=== PATIENT | male | born 1980 | race Two or more races ===

== ENCOUNTER 2017-03-09 21:27 | Observation (INO) | payer OTHER ==
--- NOTE | 2017-03-09 21:41 | EDPHY ---
H & P Stated Complaint: ABD PAIN TODAY, VOMIT LITTLE Time Seen by Provider: 03/09/17 21:35 HPI/ROS: CHIEF COMPLAINT: Abdominal pain HISTORY OF PRESENT ILLNESS: 36-year-old male primarily [place]-speaking via private vehicle complaining of right lower quadrant abdominal pain since yesterday. No appetite. Last oral intake was this morning. Positive nausea. No vomiting. Bowel movements normal. This no fever no chills. No trauma. No testicular pain. No history of chronic abdominal pain history of abdominal surgeries. PRIMARY CARE PROVIDER:[facility] REVIEW OF SYSTEMS: A ten point review of systems was performed and is negative with the exception of the items mentioned in the HPI PAST MEDICAL & SURGICAL HISTORY: No history of abdominal surgeries SOCIAL HISTORY:nonsmoker. No daily alcohol use. PHYSICAL EXAM (Prior to examination, patient consented to physical exam, hands were washed and my usual and customary physical exam procedures followed) 1) GENERAL: Well-developed, well-nourished, alert and oriented. Appears to be in no acute distress. 2) HEAD: Normocephalic, atraumatic 3) HEENT: Pupils equal, round, reactive to light bilaterally. Sclera anicteric. 4) NECK: Full range of motion, no meningeal signs. 5) LUNGS: Clear auscultation bilaterally, no wheezes, no rhonchi, no retractions. 6) HEART: Regular rate and rhythm, no murmur, no heave, no gallop. 7) ABDOMEN: No guarding, positive McBurney's point pain, negative Pretty's, negative Rovsing's, negative peritoneal sign, 8) MUSCULOSKELETAL: Moving all extremities, no focal areas of tenderness, no obvious trauma. No peripheral edema or discoloration. 9) BACK: No CVA tenderness, no midline vertebral tenderness, no fluctuance, no step-off, no obvious trauma, no visual or palpable abnormality. 10) SKIN: No rash, no petechiae. 11) : Normal male external genitalia, bilateral cremasteric reflex present and brisk , no testicular pain, swelling DIFFERENTIAL DIAGNOSIS: My differential diagnosis includes, but is not limited to, acute appendicitis, acute cholecystitis, bowel obstruction, acute pancreatitis, testicular torsion, gastritis and urinary tract infection. The patient understands that this diagnosis is provisional and can never be 100% accurate. This is a partial list of diagnoses considered. These considerations are based on history, physical exam, past history and reassessment. - Personal History Current Tetanus/Diphtheria Vaccine: Yes - Medical/Surgical History Hx Asthma: No Hx Chronic Respiratory Disease: No Hx Diabetes: No Hx Cardiac Disease: No Hx Renal Disease: No Hx Cirrhosis: No Hx Alcoholism: No Hx HIV/AIDS: No Hx Splenectomy or Spleen Trauma: No Other PMH: DENIES - Social History Smoking Status: Never smoked Constitutional: Initial Vital Signs Temperature (C) 37.2 C 03/09/17 21:31 Heart Rate 77 03/09/17 21:31 Respiratory Rate 18 03/09/17 21:31 Blood Pressure 125/69 H 03/09/17 21:31 O2 Sat (%) 96 03/09/17 21:31 O2 Delivery Mode Room Air Allergies/Adverse Reactions: No Known Allergies Allergy (Unverified 03/09/17 21:30) Home Medications: Medication Instructions Recorded Metronidazole 03/09/17 Medical Decision Making - Diagnostics Imaging Results: Imaging Impressions Abdomen CT 03/09/17 22:01 Impression: Acute appendicitis. Results called and discussed with Tio Avila, at 03/09/2017 22:40 General information for patients regarding this examination can be found at [email or web address]. If you have questions or comments about this report, please contact me at (hospital) or [phone] (cell). Imaging: Discussed imaging studies w/ call center coordinator Radiologist ED Course/Re-evaluation: 9:40 p.m.: Patient has localized right lower quadrant abdominal pain. Will obtain diagnostic studies. Patient remains NPO since breakfast this morning. 1045 pm: I discussed the imaging results to the patient significant for acute appendicitis. Will consult with General surgery, start patient on Invanz. Patient also seen exam by Dr. Aguayo in the ER. Patient remains NPO since 11: 00 a.m. today. 1100 pm: Consultation with Dr Ernandez - Data Points Laboratory Results: Laboratory Results 03/09/17 21:45 03/09/17 21:45 03/09/17 03/09/17 03/09/17 21:45 21:45 21:43 WBC 13.49 10^3/uL H 10^3/uL (3.80-9.50) RBC 5.27 10^6/uL 10^6/uL (4.40-6.38) Hgb 16.6 g/dL g/dL (13.7-17.5) POC Hgb 17.3 gm/dL gm/dL (13.7-17.5) Hct 47.7 % % (40.0-51.0) POC Hct 51 % % (40-51) MCV 90.5 fL fL (81.5-99.8) MCH 31.5 pg pg (27.9-34.1) MCHC 34.8 g/dL g/dL (32.4-36.7) RDW 12.0 % % (11.5-15.2) Plt Count 225 10^3/uL 10^3/uL (150-400) MPV 10.4 fL fL (8.7-11.7) Neut % (Auto) 83.5 % H % (39.3-74.2) Lymph % (Auto) 7.9 % L % (15.0-45.0) [place] % (Auto) 8.1 % % (4.5-13.0) Eos % (Auto) 0.1 % L % (0.6-7.6) Baso % (Auto) 0.2 % L % (0.3-1.7) Nucleat RBC Rel Count 0.0 % % (0.0-0.2) Absolute Neuts (auto) 11.26 10^3/uL H 10^3/uL (1.70-6.50) Absolute Lymphs (auto) 1.07 10^3/uL 10^3/uL (1.00-3.00) Absolute Monos (auto) 1.09 10^3/uL H 10^3/uL (0.30-0.80) Absolute Eos (auto) 0.01 10^3/uL L 10^3/uL (0.03-0.40) Absolute Basos (auto) 0.03 10^3/uL 10^3/uL (0.02-0.10) Absolute Nucleated RBC 0.00 10^3/uL 10^3/uL (0-0.01) Immature Gran % 0.2 % % (0.0-1.1) Immature Gran # 0.03 10^3/uL 10^3/uL (0.00-0.10) POC Sodium 142 mEq/L mEq/L (134-144) Sodium 140 mEq/L mEq/L (134-144) POC Potassium 3.3 mEq/L mEq/L (3.3-5.0) Potassium 3.5 mEq/L mEq/L (3.5-5.2) POC Chloride 101 mEq/L mEq/L (97-110) Chloride 102 mEq/L mEq/L (97-110) Carbon Dioxide 23 mEq/l mEq/l (22-31) Anion Gap 15 mEq/L mEq/L (8-16) POC BUN 6 mg/dL L mg/dL (7-23) BUN 8 mg/dL mg/dL (7-23) Creatinine 0.9 mg/dL mg/dL (0.7-1.3) POC Creatinine 0.9 mg/dL mg/dL (0.7-1.3) Estimated GFR > 60 Glucose 146 mg/dL H mg/dL (70-100) POC Glucose 151 mg/dL H mg/dL (70-100) Calcium 8.9 mg/dL mg/dL (8.5-10.4) Total Bilirubin 0.9 mg/dL mg/dL (0.1-1.4) Conjugated Bilirubin 0.2 mg/dL mg/dL (0.0-0.5) Unconjugated Bilirubin 0.7 mg/dL mg/dL (0.0-1.1) AST 24 IU/L IU/L (17-59) ALT 38 IU/L IU/L (21-72) Alkaline Phosphatase 89 IU/L IU/L (38-126) Total Protein 7.2 g/dL g/dL (6.3-8.2) Albumin 4.1 g/dL g/dL (3.5-5.0) Lipase 88 IU/L IU/L (23-300) Medications Given: Discontinued Medications Ketorolac Tromethamine (Toradol) 30 mg IVP EDNOW ONE Stop: 03/09/17 22:04 Last Admin: 03/09/17 22:14 Dose: 30 mg Point of Care Test Results: 03/09/17 21:43 POC Sodium 142 POC Potassium 3.3 POC Chloride 101 POC BUN 6 L POC Creatinine 0.9 POC Glucose 151 H Departure - Departure Disposition: [facility] Inpatient Acute Clinical Impression: Acute appendicitis Qualifiers: Acute appendicitis type: with localized peritonitis Qualified Code(s): K35.3 - Acute appendicitis with localized peritonitis Condition: Fair
[2017-03-09 21:53] LABS: % IMMATURE GRANULYOCYTES 0.2 % (0.0-1.1); ABSOLUTE IMMATURE GRANULOCYTES 0.03 10^3/uL (0.00-0.10); ADD DIFF? NO; ADD MORPH? NO; ADD SCAN? NO; ATYPICAL LYMPHOCYTE FLAG 30 (0-99); FRAGMENT RBC FLAG 0 (0-99); HEMATOCRIT 47.7 % (40.0-51.0); HEMOGLOBIN 16.6 g/dL (13.7-17.5); LEFT SHIFT FLG 10 (0-99); LIPEMIA HEMOLYSIS FLAG 90 (0-99); MEAN CELL HEMOGLOBIN 31.5 pg (27.9-34.1); MEAN CELL HEMOGLOBIN CONCENTR. 34.8 g/dL (32.4-36.7); MEAN CELL VOLUME 90.5 fL (81.5-99.8); MEAN PLATELET VOLUME 10.4 fL (8.7-11.7); PLATELET CLUMPS FLAG 10 (0-99); PLATELET COUNT 225 10^3/uL (150-400); RED BLOOD CELL COUNT 5.27 10^6/uL (4.40-6.38)
[2017-03-09] MEDS ORDERED: KETOROLAC 30 MG/1 ML SDV IVP ONE (22:03)
[2017-03-09 22:04] LABS: ALANINE AMINOTRANSFERASE 38 IU/L (21-72); ALBUMIN 4.1 g/dL (3.5-5.0); ALKALINE PHOSPHATASE 89 IU/L (38-126); ANION GAP 15 mEq/L (8-16); ASPARTATE AMINOTRANSFERASE 24 IU/L (17-59); BILIRUBIN,TOTAL 0.9 mg/dL (0.1-1.4); CALCIUM 8.9 mg/dL (8.5-10.4); CARBON DIOXIDE 23 mEq/l (22-31); CHLORIDE 102 mEq/L (97-110); CREATININE 0.9 mg/dL (0.7-1.3); GLOMERULAR FILTRATION RATE > 60; GLUCOSE 146 mg/dL (70-100); POTASSIUM 3.5 mEq/L (3.5-5.2); SODIUM 140 mEq/L (134-144); TOTAL PROTEIN 7.2 g/dL (6.3-8.2)
[2017-03-09] MEDS ORDERED: IOPAMIDOL (ISOVUE-300) 100 ML BTL ONE (22:08)
[2017-03-09 22:13] LABS: BILIRUBIN-CONJUGATED 0.2 mg/dL (0.0-0.5); BILIRUBIN-UNCONJUGATED 0.7 mg/dL (0.0-1.1)
[2017-03-09] MEDS ORDERED: ERTAPENEM 1 GM in NS 100 ML IV ONE (22:44)
[2017-03-09] MEDS ORDERED: NS 1,000 ML IV ONE (22:55)
[2017-03-09] MEDS ORDERED: LR 1,000 ML IV ONE (23:35)
[2017-03-09] MEDS ORDERED: BUPIVACAINE 0.25% 30 ML SDV ONE (23:39)
--- NOTE | 2017-03-09 23:48 | PDANEPAE ---
ANE History of Present Illness laparoscopic appendectomy ANE Past Medical History - Cardiovascular History Hx Hypertension: No Hx Arrhythmias: No Hx Chest Pain: No Hx Coronary Artery / Peripheral Vascular Disease: No Hx CHF / Valvular Disease: No Hx Palpitations: No - Pulmonary History Hx Oxygen in Use at Home: No Hx Sleep Apnea: No - Endocrine History Hx Diabetes: No Hypothyroid: No Hyperthyroid: No Obesity: no - Renal History Hx Renal Disorders: No - Liver History Hx Hepatic Disorders: No - Neurological & Psychiatric Hx Hx Neurological and Psychiatric Disorders: No - GI History GERD: no - Chronic Pain History Chronic Pain: No ANE Review of Systems - Exercise capacity Exercise capacity: >=4 METS ANE Patient History - Allergies Allergies/Adverse Reactions: No Known Allergies Allergy (Unverified 03/09/17 21:30) - Home Medications Home Medications: Metronidazole 03/09/17 [Last Taken Unknown] - NPO status NPO Since - Liquids (Date): 03/09/17 NPO Since - Liquids (Time): 18:00 NPO Since - Solids (Date): 03/09/17 NPO Since - Solids (Time): 11:00 - Smoking Hx Smoking Status: Never smoked Marijuana use: No - Alcohol Use Alcohol Use: None - Family Anes Hx Family Anes Hx: neg - N/A ANE Labs/Vital Signs - Labs Result Diagrams: 03/09/17 21:45 03/09/17 21:45 - Vital Signs Blood Pressure: 109/63 Heart Rate: 75 Respiratory Rate: 16 O2 Sat (%): 95 Height: 175 cm Weight: 74.843 kg ANE Physical Exam - Airway Neck exam: FROM Mallampati Score: Class 1 Mouth exam: normal dental/mouth exam - Pulmonary Pulmonary: clear to auscultation - Cardiovascular Cardiovascular: regular rate and rhythym - ASA Status ASA Status: II, E ANE Anesthesia Plan Anesthesia Plan: general endotracheal anesthesia
[2017-03-09] MEDS ORDERED: fentaNYL 100 MCG/2 ML INJ ONE ×2 (23:56)
[2017-03-09] MEDS ORDERED: PROPOFOL 200 MG/20 ML VIAL ONE (23:56)
[2017-03-09] MEDS ORDERED: MIDAZOLAM 2 MG/2 ML VIAL ONE (23:57)
[2017-03-09] MEDS ORDERED: ROCURONIUM 50 MG/5 ML VIAL ONE (23:57)
--- NOTE | 2017-03-09 23:57 | PDGENHP ---
History & Physical Chief Complaint: abd pain History of Present Illness: 36 y/o male with 36 hour hx abd pain. He presented to the ED and a CT scan was performed that showed appendicitis. Surgical consultation was requested Pertinent Past, Social, Family History: non-drinker, non-smoker. NKDA. meds: Flagyl. no prior surgery or medical problems. works as a biomedical engineering technologist/plays soccer Relevant Physical Exam: thin athletic [place] Citizen speaking male[facility]. No scleral incterus or adenopathy. Abd: soft with hypoactive bowel sounds, + Rovsing's, RLQ tenderness to percussion and palpation with guarding,no mass or hernia Cardiorespiratory Assessment: lungs clear. CVS RRR Assessment and Plan Assessment: Acute appendicitis [] Plan: IV Ertapenam give in the ED. Surgery is scheduled for tonight. I have discussed with Monica the procedure of appendectomy, the expected recovery and risks. Informed consent was obtained. Anjel Ernandez MD, FACS
[2017-03-09] MEDS ORDERED: DEXAMETHASONE 4 MG/ML VIAL ONE (23:58)
[2017-03-10] MEDS ORDERED: ONDANSETRON 4 MG/2 ML VIAL ONE (00:29)
[2017-03-10] MEDS ORDERED: NEOSTIGMINE METHYLSULFATE 5 MG/5 ML SYR ONE (00:36)
[2017-03-10] MEDS ORDERED: GLYCOPYRROLATE 0.2 MG/1 ML VIAL ONE (00:36)
[2017-03-10] MEDS ORDERED: BUPIVACAINE 0.25% 30 ML SDV ONE (00:43)
[2017-03-10] MEDS ORDERED: NALOXONE HCL 0.4 MG/ML INJ IVP PRN (01:08)
[2017-03-10] MEDS ORDERED: fentaNYL 100 MCG/2 ML INJ IVP PRN (01:08)
[2017-03-10] MEDS ORDERED: ONDANSETRON 4 MG/2 ML VIAL IVP PRN ×2 (01:08→01:09)
[2017-03-10] MEDS ORDERED: HYDROCODONE/APAP 5/325 TAB PO PRN (01:09)
[2017-03-10] MEDS ORDERED: ACETAMINOPHEN 325 MG TAB PO PRN (01:09)
[2017-03-10] MEDS ORDERED: METOCLOPRAMIDE 10 MG/2 ML VIAL IVP PRN (01:09)
[2017-03-10] MEDS ORDERED: MAGNESIUM HYDROXIDE 30 ML UDCUP PO PRN (01:09)
--- NOTE | 2017-03-10 01:13 | POSTANESTH ---
Post Anesthetic Evaluation Cardiovascular Status: Normal, Stable Respiratory Status: Normal, Stable Level of Consciousness/Mental Status: Can Participate in Eval Pain Control: Adequate, Prn Tx Ordered Nausea/Vomiting Control: Adequate, Prn Tx Ordered Complications Possibly Related to Anesthesia: None Noted
--- NOTE | 2017-03-10 01:25 | POSTOPPROG ---
Post Op Note Date of Operation: 03/10/17 Surgeon: Neville Ernandez (, FACS) Anesthesiologist: Dimitrios Cabrera MD Anesthesia: GET(General Endotracheal) Pre-op Diagnosis: appendicitis Post-op Diagnosis: same Procedure: appendectomy Findings: #[id number] Dictated Inf/Abcess present in the surg proc area at time of surgery?: Yes Depth: Organ Space Specimen(s): appendix
[2017-03-10] MEDS ORDERED: LR 1,000 ML IV SCH (01:30)
[2017-03-10 03:49] VITALS: RESP 16
[2017-03-10 05:36] LABS: COLOR YELLOW; LEUKOCYTE ESTERASE,URINE NEGATIVE (NEGATIVE); NITRITE,URINE NEGATIVE (NEGATIVE)
[2017-03-10] MEDS ORDERED: IBUPROFEN 600 MG TAB PO SCH (06:00)
--- NOTE | 2017-03-10 06:24 | GOP ---
[f rep st] OPERATIVE REPORT DATE OF OPERATION: 03/10/2017 SURGEON: Neville Ernandez MD, FACS ANESTHESIA: General endotracheal. ANESTHESIOLOGIST: Dimitrios Cabrera MD. PREOPERATIVE DIAGNOSIS: Acute appendicitis. POSTOPERATIVE DIAGNOSIS: Acute appendicitis. PROCEDURE PERFORMED: Appendectomy. FINDINGS: Acute suppurative appendicitis without perforation. ESTIMATED BLOOD LOSS: 5 mL. DESCRIPTION OF PROCEDURE: After informed consent was obtained, the patient was brought to the operating room and placed under general anesthesia. The abdomen was prepped and draped in the usual fashion. Before proceeding, a time-out and identification of the patient was performed. Marcaine 0.25% was used to infiltrate the planned incision site. A transverse incision was made below the true McBurney's point transversely and through the skin and subcutaneous tissues and superficial fascia. External oblique fascia was incised transversely. Internal oblique and transverse abdominis muscles were split. The peritoneum was incised. Peritoneal cavity was entered and explored. The appendix was mobilized into the incision. The mesoappendix was clamped, divided and ligated with 2-0 Vicryl ligatures. The appendix was from the cecum with a single firing of the TU stapler and removed from the field. The specimen was submitted for permanent section. Hemostasis appeared secure. Cecum was returned to its anatomic position. The area was irrigated and aspirated until the effluent was clear. The peritoneum was closed with continuous running 3-0 Vicryl suture. Muscles approximated with 2- 0 Vicryl suture. The fascia was closed with 0-PDS suture. Subcutaneous tissues with 3-0 Vicryl suture. The skin was closed with 4-0 Monocryl suture in a subcuticular fashion. Mastisol and Steri-Strips were applied. Needle, sponge, and instrument count were correct. COMPLICATIONS: None. /[id number]/MODL MTDD
--- NOTE | 2017-03-10 07:12 | PDDCSUM ---
Discharge Summary Discharge Summary: Monica underwent open appendectomy shortly after midnight 03/10/17. He received one gram Ertapenam in the ED. He was found to have acute appendicitis with localized peritonitis. He felt better immediately after surgery and was afebrile. I ordered a second dose of Ertapenam post operatively and plan on discharging him later today. On the morning of the surgery his dressing was dry and his abdomen was soft with hypoactive bowel sounds. We discussed diet, activity, wound care and follow up. DC Meds: Ibuprofen 600mg #30 [place] 5/325 #10 S MD Awais, FACS
[2017-03-10 07:24] VITALS: BP 99/60; PULSE 62; TEMP 98.6; O2SAT 94
[2017-03-10] MEDS ORDERED: ERTAPENEM 1 GM in NS 100 ML IV SCH (09:00)
--- NOTE | 2017-03-10 13:02 | ASDISCHSUM ---
Discharge Information Plan Status:Home with No Needs Medically Cleared to Leave: Discharge Date:03/10/2017 10:16 AM CM D/C Disposition:Home, Routine, Self-Care ADT D/C Disposition:Home, Routine, Self-Care Projected Discharge Date:03/10/2017 10:16 AM Transportation at D/C:Family Discharge Delay Reason: Follow-Up Date:03/10/2017 10:16 AM Discharge Slot: Final Diagnosis: Placement Information Patient Contact Information Contact Name:ROCIO Relationship:Sister Address:[address] [place] [address] [id number] Work Phone: City:[place] Alternate Phone: [facility]/Zip Code:[place] [address] Email: Financial Information Financial Class:Self-Pay Primary Plan Desc:WE CARE Primary Plan Number:99 Secondary Plan Desc: Secondary Plan Number: Assessment Information Intervention Information
== END 2017-03-10 10:16 | disposition home or self-care (01) ==
LOC: F3E 03-10 01:28
PROVIDERS: ADMIT Surgery; ATTEND Surgery
PROC: 0DTJ0ZZ Resection of Appendix, Open Approach (ICD-10-PCS; principal; 2017-03-09 23:50)
DX: K35.3 Acute appendicitis with localized peritonitis (principal)
CPT/HCPCS: 82947-QW; 96365; G0378; J1100; J1335; J1885; J2250; J2405; J2704; J2710; J3010; Q9967